=== PATIENT | male | born 1995 | race Two or more races ===

== ENCOUNTER 2024-09-14 16:30 | Emergency (ER) | payer OTHER ==
[~2024-09-14] VITALS: Ht 182.9 cm; Wt 83.9 kg
[2024-09-14] MEDS ORDERED: METHYLPREDNISOLONE SOD SUCC 125 MG VIAL IV ONE (17:30)
[2024-09-14] MEDS ORDERED: CETIRIZINE HCL 5 MG/5 ML ML PO ONE (17:30)
[2024-09-14] MEDS ORDERED: ALLEGRA ALLERG180 MG PO (17:32)
[2024-09-14] MEDS ORDERED: MEDROLPACK PO (17:32)
[2024-09-14] MEDS ORDERED: CLOTRIMAZOLE-BE15 GM TOP (17:32)
[2024-09-14] MEDS ORDERED: CETIRIZINE HCL 5MG/5ML BLIST.PACK PO ONE (17:33)
[2024-09-14] MEDS ORDERED: METHYLPREDNISOLONE SOD SUCC 125 MG VIAL ONE (17:33)
== END 2024-09-14 17:42 | disposition home or self-care (01) ==
LOC: ER 16:32
DX: R53.81 Other malaise (principal); T63.621A Toxic effect of contact with other jellyfish, accidental (unintentional), initial encounter